=== PATIENT | male | born 1950 | race Caucasian/White ===

== ENCOUNTER 2019-02-24 18:53 | Inpatient (IN) ==
[2019-02-24] MEDS ORDERED: MAGNESIUM SULF RIDER 2 GM in PREMIX 1 EACH IV STA (19:22)
[2019-02-24] MEDS ORDERED: LEVALBUTEROL 1.25 MG/3 ML NEB RESP TX STA (19:22)
[2019-02-24] MEDS ORDERED: FUROSEMIDE 100 MG/10 ML VIAL IV STA (19:22)
[2019-02-24] MEDS ORDERED: MORPHINE 4 MG/1 ML VIAL IV STA (19:22)
[2019-02-24] MEDS ORDERED: cefTRIAXone 1,000 MG in SODIUM CHLORIDE 0.9% 100 ML IV STA (19:22)
[2019-02-24] MEDS ORDERED: DILTIAZEM 50 MG/10 ML VIAL IV STA (19:22)
[2019-02-24] MEDS ORDERED: methylPREDNISolone SOD SUC 125 MG/2 ML VIAL IV STA (19:22)
[2019-02-24] MEDS ORDERED: ASPIRIN 325 MG TABLET PO STA (19:22)
[2019-02-24] MEDS ORDERED: ONDANSETRON 4 MG/2 ML VIAL IV STA (19:22)
[2019-02-24 19:31] LABS: Basophils # 0.1 10*3/uL (0.0-0.2); Basophils % 0.5 % (0.0-0.8); Eosinophils # 0.1 10*3/uL (0.0-0.87); Eosinophils % 0.5 % (0.00-10.9); Hematocrit 44.8 VOL% (42.0-52.0); Hemoglobin 14.1 GM/DL (14.0-18.0); Immature Granulocytes % 0.9 %; Immature Granulocytes Absolute 0.14 #; Lymphocytes # 2.4 10*3/uL (1.4-4.0); Lymphocytes % 14.6 % (21.2-54.2); Mean Corpuscular HGB Conc 31.5 GM/DL (32-36); Mean Platelet Volume 9.9 FL (9.6-12.0); Monocytes % 8.6 % (1.7-12.7); Neutrophils % 74.9 % (38.7-73.9); Platelet Count 483 T/CUMM (130-400); Red Blood Count 5.15 MC/CUMM (3.8-5.5); Red Cell Distribution Width 14.8 % (9.3-17.3); White Blood Count 16.5 T/CUMM (4-12)
[2019-02-24 19:37] LABS: INR 1.1; PT Patient Result 11.4 SECS
[2019-02-24 19:50] LABS: Albumin 3.5 G/DL (3.4-5.0); Bilirubin,Total 0.6 MG/DL (0.2-1.0); CKMB % 4.6 %; Calcium 9.7 MG/DL (8.5-10.1); Osmolality,Calculated 277.8 MOS/KG (273-304); Total Protein 7.4 G/DL (6.4-8.3); Troponin I 0.025 NG/ML (0.00-0.045)
[2019-02-24] MEDS ORDERED: METOPROLOL TARTRATE 5 MG/5 ML VIAL IV ONE (19:58)
[2019-02-24] MEDS ORDERED: METOPROLOL TARTRATE 5 MG/5 ML VIAL IV STA (19:58)
[2019-02-24 20:12] LABS: ABG Base Excess 1.1 MMOL/L (-2.5-2.5); ABG HCO3 25.4 MMOL/L (20-26); ABG Oxygen Saturation 97.8 % (95-100); ABG PCO2 42.9 MM HG (35-48); ABG PH 7.396 (7.35-7.45); ABG TCO2 22.6 MMOL/L (23-27); Allen Test Positive
[2019-02-24] MEDS ORDERED: ENOXAPARIN 100 MG/ML SYRINGE SUBCUT STA (20:53)
[2019-02-24] MEDS ORDERED: ACETAMINOPHEN 325 MG TABLET PO PRN (21:54)
[2019-02-24] MEDS ORDERED: ONDANSETRON 4 MG/2 ML VIAL IV PRN (21:54)
[2019-02-24] MEDS ORDERED: diphenhydrAMINE CAP 25 MG CAPSULE PO PRN (21:54)
[2019-02-24] MEDS ORDERED: guaiFENesin/DM ER 600-30 MG TABLET PO PRN (21:54)
[2019-02-24] MEDS ORDERED: NICOTINE 21 MG/24 HR PATCH TRANSDERM PRN (21:54)
[2019-02-24] MEDS ORDERED: LEVOFLOXACIN INJ 750 MG in PREMIX 1 EACH IV SCH (23:00)
[2019-02-25] MEDS: ALBUTEROL/IPRATROPIUM 3 ML NEB RESP TX SCH ×2 (00:25→08:40)
[2019-02-25 00:48] LABS: Apearance,Urine CLEAR (Clear); Bilirubin,Urine Negative (Negative); Blood, Urine Large mg/dL (Negative); Glucose,Urine (UA) Negative (Negative); Hyaline Casts,Urine 4 /LPF (0-3); Ketones,Urine Negative (Negative); Mucus,Urine Occasional /LPF (Occasional); Nitrite,Urine Negative (Negative); Protein,Urine Negative; RBC,Urine 388 /HPF (0-4); Urine Color Yellow (Yellow); Urine Specific Gravity 1.019 (1.001-1.035); Urine Urobilinogen < 2.0 EU/DL (0.2-1.0); WBC,Urine 4 /HPF (0-6)
[2019-02-25 00:59] LABS: Barbiturates Screen,Urine Negative (Negative); Benzodiazepines Screen,Urine Negative (Negative); Cannabinoid Screen,Urine Negative (Negative); Opiate Screen,Urine Positive (Negative); Phencyclidine Screen,Urine Negative (Negative)
[2019-02-25 01:15] LABS: Basophils % 0.4 % (0.0-0.8); Hematocrit 41.9 VOL% (42.0-52.0); Hemoglobin 13.3 GM/DL (14.0-18.0); Immature Granulocytes % 0.7 %; Immature Granulocytes Absolute 0.08 #; Lymphocytes # 0.7 10*3/uL (1.4-4.0); Lymphocytes % 5.9 % (21.2-54.2); Mean Corpuscular HGB Conc 31.7 GM/DL (32-36); Mean Corpuscular Volume 87.1 FL (87-102); Mean Platelet Volume 9.8 FL (9.6-12.0); Monocytes % 1.1 % (1.7-12.7); Neutrophils % 91.9 % (38.7-73.9); Platelet Count 377 T/CUMM (130-400); Red Blood Count 4.81 MC/CUMM (3.8-5.5); Red Cell Distribution Width 14.6 % (9.3-17.3); White Blood Count 11.4 T/CUMM (4-12)
[2019-02-25] MEDS: PIPERACILLIN/TAZOBACTAM 3,375 MG in SODIUM CHLORIDE 0.9% 100 ML IV SCH ×2 (01:15→09:35)
[2019-02-25] MEDS: LORazepam 2 MG/1 ML VIAL IV PRN ×2 (01:23→21:23)
[2019-02-25 01:45] LABS: Lymphocytes 5 % (20-55); Segmented Neutrophils 95 % (50-85); Total Cells Counted 100
[2019-02-25 01:46] LABS: Anisocytosis 1+; Platelet Estimate Adequate
[2019-02-25 02:02] LABS: Albumin 3.5 G/DL (3.4-5.0); Bilirubin,Total 0.4 MG/DL (0.2-1.0); Calcium 9.5 MG/DL (8.5-10.1); Total Protein 7.2 G/DL (6.4-8.3)
[2019-02-25 04:27] LABS: ABG Base Excess 0.9 MMOL/L (-2.5-2.5); ABG HCO3 25.2 MMOL/L (20-26); ABG Oxygen Saturation 94.5 % (95-100); ABG PCO2 52.1 MM HG (35-48); ABG PH 7.336 (7.35-7.45); ABG PO2 82.2 MM HG (80-95); ABG TCO2 24.4 MMOL/L (23-27); Allen Test Positive; Pt O2 Delivery Device Other
[2019-02-25] MEDS: VANCOMYCIN INJ 1,000 MG in SODIUM CHLORIDE 0.9% 250 ML IV SCH ×2 (06:05→17:47)
[2019-02-25] MEDS ORDERED: FUROSEMIDE 40 MG/4 ML VIAL IV SCH (08:00)
[2019-02-25] MEDS: PANTOPRAZOLE 40 MG TABLET PO SCH (09:10)
[2019-02-25] MEDS: methylPREDNISolone SOD SUC 40 MG/1 ML VIAL IV SCH ×2 (09:35→21:20)
[2019-02-25] MEDS: DORNASE ALFA 2.5 MG/2.5 ML VIAL RESP TX SCH ×2 (11:20→19:12)
[2019-02-25] MEDS: ASPIRIN EC 325 MG TABLET PO SCH (11:45)
[2019-02-25] MEDS: ATORVASTATIN 20 MG TABLET PO SCH (11:45)
[2019-02-25] MEDS: MEROPENEM 1,000 MG in SODIUM CHLORIDE 0.9% 100 ML IV SCH ×2 (11:46→22:35)
[2019-02-25] MEDS: MONTELUKAST 10 MG TABLET PO SCH ×2 (11:46→21:20)
[2019-02-25] MEDS: LEVALBUTEROL 1.25 MG/3 ML NEB RESP TX SCH ×2 (13:09→19:12)
[2019-02-25] MEDS: IPRATROPIUM 500 MCG/2.5 ML NEB RESP TX SCH ×2 (13:10→19:12)
[2019-02-25] MEDS ORDERED: DILTIAZEM CD 120 MG CAPSULE PO ONE (17:01)
[2019-02-26] MEDS: IPRATROPIUM 500 MCG/2.5 ML NEB RESP TX SCH ×4 (01:00→19:54)
[2019-02-26] MEDS: LEVALBUTEROL 1.25 MG/3 ML NEB RESP TX SCH ×4 (01:00→19:54)
[2019-02-26 04:38] LABS: Basophils % 0.1 % (0.0-0.8); Hematocrit 40.9 VOL% (42.0-52.0); Hemoglobin 13.1 GM/DL (14.0-18.0); Immature Granulocytes % 0.8 %; Immature Granulocytes Absolute 0.12 #; Lymphocytes # 0.9 10*3/uL (1.4-4.0); Lymphocytes % 6.1 % (21.2-54.2); Mean Corpuscular Volume 86.7 FL (87-102); Mean Platelet Volume 10.2 FL (9.6-12.0); Platelet Count 407 T/CUMM (130-400); Red Blood Count 4.72 MC/CUMM (3.8-5.5); Red Cell Distribution Width 14.6 % (9.3-17.3); White Blood Count 15.1 T/CUMM (4-12)
[2019-02-26] MEDS: VANCOMYCIN INJ 1,000 MG in SODIUM CHLORIDE 0.9% 250 ML IV SCH (04:55)
[2019-02-26 05:01] LABS: Calcium 9.3 MG/DL (8.5-10.1); Osmolality,Calculated 277.1 MOS/KG (273-304)
[2019-02-26 05:11] LABS: Risk Ratio 2.44; VLDL CHOLESTEROL 25.8 MG/DL
[2019-02-26] MEDS: LORazepam 2 MG/1 ML VIAL IV PRN (06:25)
[2019-02-26] MEDS: DORNASE ALFA 2.5 MG/2.5 ML VIAL RESP TX SCH ×2 (07:30→19:54)
[2019-02-26] MEDS: PANTOPRAZOLE 40 MG TABLET PO SCH (08:31)
[2019-02-26] MEDS: ASCORBIC ACID 500 MG TABLET PO SCH ×2 (08:31→21:24)
[2019-02-26] MEDS: DILTIAZEM CD 120 MG CAPSULE PO SCH (08:31)
[2019-02-26] MEDS: methylPREDNISolone SOD SUC 40 MG/1 ML VIAL IV SCH ×2 (08:31→21:22)
[2019-02-26] MEDS: ATORVASTATIN 20 MG TABLET PO SCH (08:31)
[2019-02-26] MEDS: MONTELUKAST 10 MG TABLET PO SCH ×2 (08:31→21:24)
[2019-02-26] MEDS: ASPIRIN EC 325 MG TABLET PO SCH (08:32)
[2019-02-26] MEDS ORDERED: ENOXAPARIN 30 MG/0.3 ML SYRINGE SUBCUT SCH (09:00)
[2019-02-26] MEDS: ENOXAPARIN 40 MG/0.4 ML SYRINGE SUBCUT SCH (09:08)
[2019-02-26] MEDS: LEVOFLOXACIN 500 MG TABLET PO SCH (09:25)
[2019-02-26] MEDS: MEROPENEM 1,000 MG in SODIUM CHLORIDE 0.9% 100 ML IV SCH ×2 (14:24→22:54)
[2019-02-26] MEDS: MORPHINE 4 MG/1 ML VIAL IV PRN (21:22)
[2019-02-27] MEDS: MORPHINE 4 MG/1 ML VIAL IV PRN ×3 (00:44→21:08)
[2019-02-27] MEDS: IPRATROPIUM 500 MCG/2.5 ML NEB RESP TX SCH ×4 (01:00→19:00)
[2019-02-27] MEDS: LEVALBUTEROL 1.25 MG/3 ML NEB RESP TX SCH ×4 (01:00→19:00)
[2019-02-27 03:55] LABS: Basophils % 0.1 % (0.0-0.8); Hematocrit 43.5 VOL% (42.0-52.0); Hemoglobin 13.6 GM/DL (14.0-18.0); Immature Granulocytes % 0.8 %; Immature Granulocytes Absolute 0.12 #; Lymphocytes # 0.6 10*3/uL (1.4-4.0); Mean Corpuscular HGB Conc 31.3 GM/DL (32-36); Mean Corpuscular Volume 87.9 FL (87-102); Mean Platelet Volume 10.1 FL (9.6-12.0); Monocytes % 3.6 % (1.7-12.7); Neutrophils % 91.5 % (38.7-73.9); Platelet Count 374 T/CUMM (130-400); Red Blood Count 4.95 MC/CUMM (3.8-5.5); Red Cell Distribution Width 14.6 % (9.3-17.3); White Blood Count 14.6 T/CUMM (4-12)
[2019-02-27 04:25] LABS: Lymphocytes 1 % (20-55); Platelet Estimate Normal; Segmented Neutrophils 98 % (50-85); Total Cells Counted 100
[2019-02-27 04:27] LABS: Polychromasia Few
[2019-02-27 04:28] LABS: Calcium 9.5 MG/DL (8.5-10.1); Osmolality,Calculated 287.4 MOS/KG (273-304)
[2019-02-27] MEDS: DORNASE ALFA 2.5 MG/2.5 ML VIAL RESP TX SCH ×2 (07:32→19:32)
[2019-02-27] MEDS: ATORVASTATIN 20 MG TABLET PO SCH (08:46)
[2019-02-27] MEDS: MONTELUKAST 10 MG TABLET PO SCH ×2 (08:46→21:07)
[2019-02-27] MEDS: ENOXAPARIN 40 MG/0.4 ML SYRINGE SUBCUT SCH (08:47)
[2019-02-27] MEDS: methylPREDNISolone SOD SUC 40 MG/1 ML VIAL IV SCH ×2 (08:47→21:07)
[2019-02-27] MEDS: ASCORBIC ACID 500 MG TABLET PO SCH ×2 (08:47→21:07)
[2019-02-27] MEDS: ASPIRIN EC 325 MG TABLET PO SCH (08:47)
[2019-02-27] MEDS: PANTOPRAZOLE 40 MG TABLET PO SCH (08:47)
[2019-02-27] MEDS: LEVOFLOXACIN 500 MG TABLET PO SCH (08:47)
[2019-02-27] MEDS: DILTIAZEM CD 120 MG CAPSULE PO SCH (08:47)
[2019-02-27] MEDS: MEROPENEM 1,000 MG in SODIUM CHLORIDE 0.9% 100 ML IV SCH (10:31)
[2019-02-27] MEDS ORDERED: DILTIAZEM 50 MG/10 ML VIAL IV ONE (10:32)
[2019-02-27] MEDS: METOPROLOL TARTRATE 25 MG TABLET PO SCH ×2 (10:46→21:07)
[2019-02-27] MEDS ORDERED: FLECAINIDE 100 MG TABLET PO ONE (10:50)
[2019-02-27] MEDS: APIXABAN 5 MG TABLET PO SCH ×2 (11:10→21:07)
[2019-02-27] MEDS: dilTIAZem Drip 125 MG/125 ML PREMIX IV SCH (11:27)
[2019-02-27] MEDS: cefTRIAXone 1,000 MG in SYRINGE 1 EACH IV SCH (14:01)
[2019-02-27] MEDS: FLUCONAZOLE 200 MG TABLET PO SCH (14:01)
[2019-02-28] MEDS: LEVALBUTEROL 1.25 MG/3 ML NEB RESP TX SCH ×4 (00:29→19:16)
[2019-02-28] MEDS: IPRATROPIUM 500 MCG/2.5 ML NEB RESP TX SCH ×5 (00:29→19:16)
[2019-02-28 04:56] LABS: Basophils % 0.2 % (0.0-0.8); Hematocrit 43.2 VOL% (42.0-52.0); Hemoglobin 13.9 GM/DL (14.0-18.0); Immature Granulocytes % 0.8 %; Immature Granulocytes Absolute 0.11 #; Lymphocytes # 0.7 10*3/uL (1.4-4.0); Lymphocytes % 5.3 % (21.2-54.2); Mean Corpuscular HGB Conc 32.2 GM/DL (32-36); Mean Corpuscular Volume 87.4 FL (87-102); Mean Platelet Volume 10.8 FL (9.6-12.0); Monocytes % 3.7 % (1.7-12.7); Platelet Count 396 T/CUMM (130-400); Red Blood Count 4.94 MC/CUMM (3.8-5.5); Red Cell Distribution Width 14.8 % (9.3-17.3); White Blood Count 13.3 T/CUMM (4-12)
[2019-02-28 05:04] LABS: Calcium 9.6 MG/DL (8.5-10.1); Osmolality,Calculated 296.1 MOS/KG (273-304)
[2019-02-28] MEDS: DORNASE ALFA 2.5 MG/2.5 ML VIAL RESP TX SCH ×2 (07:25→19:16)
[2019-02-28] MEDS: FLUCONAZOLE 200 MG TABLET PO SCH (08:32)
[2019-02-28] MEDS: DILTIAZEM CD 120 MG CAPSULE PO SCH (08:34)
[2019-02-28] MEDS: ASPIRIN EC 325 MG TABLET PO SCH (08:35)
[2019-02-28] MEDS: MONTELUKAST 10 MG TABLET PO SCH ×2 (08:35→20:32)
[2019-02-28] MEDS: ASCORBIC ACID 500 MG TABLET PO SCH ×2 (08:35→20:32)
[2019-02-28] MEDS: METOPROLOL TARTRATE 25 MG TABLET PO SCH ×2 (08:35→20:32)
[2019-02-28] MEDS: ATORVASTATIN 20 MG TABLET PO SCH (08:35)
[2019-02-28] MEDS: APIXABAN 5 MG TABLET PO SCH ×2 (08:35→20:32)
[2019-02-28] MEDS: PANTOPRAZOLE 40 MG TABLET PO SCH (08:35)
[2019-02-28] MEDS: methylPREDNISolone SOD SUC 40 MG/1 ML VIAL IV SCH ×3 (08:36→20:31)
[2019-02-28] MEDS: FLECAINIDE 50 MG TABLET PO SCH ×2 (08:41→20:32)
[2019-02-28] MEDS: dilTIAZem Drip 125 MG/125 ML PREMIX IV SCH (13:30)
[2019-02-28] MEDS: cefTRIAXone 1,000 MG in SYRINGE 1 EACH IV SCH (13:33)
[2019-02-28] MEDS: THEOPHYLLINE ER (24 HR) 300 MG CAPSULE PO SCH (16:18)
[2019-02-28] MEDS: BUDESONIDE 0.5 MG/2 ML NEB RESP TX SCH (19:16)
[2019-03-01] MEDS: IPRATROPIUM 500 MCG/2.5 ML NEB RESP TX SCH ×6 (00:10→23:43)
[2019-03-01] MEDS: LEVALBUTEROL 1.25 MG/3 ML NEB RESP TX SCH ×5 (00:10→23:43)
[2019-03-01] MEDS: methylPREDNISolone SOD SUC 40 MG/1 ML VIAL IV SCH ×4 (02:02→21:02)
[2019-03-01] MEDS: MORPHINE 4 MG/1 ML VIAL IV PRN (02:45)
[2019-03-01 04:36] LABS: Basophils % 0.1 % (0.0-0.8); Hematocrit 46.7 VOL% (42.0-52.0); Immature Granulocytes % 0.9 %; Immature Granulocytes Absolute 0.12 #; Lymphocytes # 0.6 10*3/uL (1.4-4.0); Lymphocytes % 4.2 % (21.2-54.2); Mean Corpuscular HGB Conc 32.1 GM/DL (32-36); Mean Corpuscular Volume 86.8 FL (87-102); Mean Platelet Volume 10.4 FL (9.6-12.0); Monocytes % 3.4 % (1.7-12.7); Neutrophils % 91.4 % (38.7-73.9); Platelet Count 411 T/CUMM (130-400); Red Blood Count 5.38 MC/CUMM (3.8-5.5); Red Cell Distribution Width 14.8 % (9.3-17.3)
[2019-03-01 04:57] LABS: Calcium 9.7 MG/DL (8.5-10.1); Osmolality,Calculated 297.1 MOS/KG (273-304)
[2019-03-01 05:03] LABS: Total Cells Counted 100
[2019-03-01 05:06] LABS: Band Neutrophils 3 % (0-10); Lymphocytes 2 % (20-55); Platelet Estimate Normal; Segmented Neutrophils 91 % (50-85)
[2019-03-01] MEDS: BUDESONIDE 0.5 MG/2 ML NEB RESP TX SCH ×2 (07:51→19:30)
[2019-03-01] MEDS: DORNASE ALFA 2.5 MG/2.5 ML VIAL RESP TX SCH ×2 (07:51→19:41)
[2019-03-01] MEDS: ATORVASTATIN 20 MG TABLET PO SCH (08:49)
[2019-03-01] MEDS: FLUCONAZOLE 200 MG TABLET PO SCH (08:49)
[2019-03-01] MEDS: FLECAINIDE 50 MG TABLET PO SCH ×2 (08:50→21:01)
[2019-03-01] MEDS: METOPROLOL TARTRATE 25 MG TABLET PO SCH ×2 (08:50→21:01)
[2019-03-01] MEDS: THEOPHYLLINE ER (24 HR) 300 MG CAPSULE PO SCH (08:50)
[2019-03-01] MEDS: PANTOPRAZOLE 40 MG TABLET PO SCH (08:51)
[2019-03-01] MEDS: APIXABAN 5 MG TABLET PO SCH ×2 (08:51→21:01)
[2019-03-01] MEDS: DILTIAZEM CD 120 MG CAPSULE PO SCH (08:51)
[2019-03-01] MEDS: ASCORBIC ACID 500 MG TABLET PO SCH ×2 (08:52→21:01)
[2019-03-01] MEDS: MONTELUKAST 10 MG TABLET PO SCH ×2 (08:52→21:01)
[2019-03-01] MEDS: ASPIRIN EC 325 MG TABLET PO SCH (08:53)
[2019-03-01] MEDS ORDERED: ALBUTEROL 2.5 MG/3 ML NEB RESP TX PRN (10:09)
[2019-03-01] MEDS ORDERED: ALBUTEROL 2.5 MG/3 ML NEB RESP TX SCH (10:13)
[2019-03-01 10:30] LABS: ABG Base Excess 5.2 MMOL/L (-2.5-2.5); ABG Oxygen Saturation 94.2 % (95-100); ABG PCO2 47.7 MM HG (35-48); ABG PH 7.419 (7.35-7.45); ABG PO2 74.6 MM HG (80-95); ABG TCO2 26.3 MMOL/L (23-27)
[2019-03-01] MEDS ORDERED: LEVALBUTEROL 1.25 MG/3 ML NEB RESP TX PRN (10:53)
[2019-03-01] MEDS: dilTIAZem Drip 125 MG/125 ML PREMIX IV SCH (13:10)
[2019-03-01] MEDS: cefTRIAXone 1,000 MG in SYRINGE 1 EACH IV SCH (13:46)
[2019-03-01] MEDS: IPRATROPIUM 500 MCG/2.5 ML NEB RESP TX PRN (17:57)
[2019-03-02] MEDS: IPRATROPIUM 500 MCG/2.5 ML NEB RESP TX PRN (03:30)
[2019-03-02] MEDS: methylPREDNISolone SOD SUC 40 MG/1 ML VIAL IV SCH ×2 (03:49→09:29)
[2019-03-02 04:09] LABS: Basophils # 0.1 10*3/uL (0.0-0.2); Basophils % 0.3 % (0.0-0.8); Hematocrit 46.4 VOL% (42.0-52.0); Hemoglobin 14.7 GM/DL (14.0-18.0); Immature Granulocytes % 0.9 %; Immature Granulocytes Absolute 0.15 #; Lymphocytes # 0.7 10*3/uL (1.4-4.0); Lymphocytes % 3.8 % (21.2-54.2); Mean Corpuscular HGB Conc 31.7 GM/DL (32-36); Mean Corpuscular Volume 87.7 FL (87-102); Mean Platelet Volume 10.1 FL (9.6-12.0); Platelet Count 368 T/CUMM (130-400); Red Blood Count 5.29 MC/CUMM (3.8-5.5); Red Cell Distribution Width 14.7 % (9.3-17.3); White Blood Count 17.6 T/CUMM (4-12)
[2019-03-02 04:35] LABS: Calcium 9.9 MG/DL (8.5-10.1); Osmolality,Calculated 297.1 MOS/KG (273-304)
[2019-03-02 05:01] LABS: Hypochromasia Slight; Lymphocytes 6 % (20-55); Metamyelocytes 1 %; Platelet Estimate Normal; Segmented Neutrophils 92 % (50-85); Total Cells Counted 100
[2019-03-02] MEDS: DORNASE ALFA 2.5 MG/2.5 ML VIAL RESP TX SCH (07:19)
[2019-03-02] MEDS: IPRATROPIUM 500 MCG/2.5 ML NEB RESP TX SCH ×2 (07:19→13:27)
[2019-03-02] MEDS: BUDESONIDE 0.5 MG/2 ML NEB RESP TX SCH (07:19)
[2019-03-02] MEDS: LEVALBUTEROL 1.25 MG/3 ML NEB RESP TX SCH ×2 (07:19→13:27)
[2019-03-02] MEDS: MONTELUKAST 10 MG TABLET PO SCH (09:25)
[2019-03-02] MEDS: ATORVASTATIN 20 MG TABLET PO SCH (09:25)
[2019-03-02] MEDS: METOPROLOL TARTRATE 25 MG TABLET PO SCH (09:26)
[2019-03-02] MEDS: ASPIRIN EC 325 MG TABLET PO SCH (09:26)
[2019-03-02] MEDS: FLUCONAZOLE 200 MG TABLET PO SCH (09:26)
[2019-03-02] MEDS: FLECAINIDE 50 MG TABLET PO SCH (09:26)
[2019-03-02] MEDS: ASCORBIC ACID 500 MG TABLET PO SCH (09:27)
[2019-03-02] MEDS: PANTOPRAZOLE 40 MG TABLET PO SCH (09:27)
[2019-03-02] MEDS: DILTIAZEM CD 120 MG CAPSULE PO SCH (09:27)
[2019-03-02] MEDS: APIXABAN 5 MG TABLET PO SCH (09:28)
[2019-03-02] MEDS: THEOPHYLLINE ER (24 HR) 300 MG CAPSULE PO SCH (09:30)
[2019-03-02 12:21] VITALS: BP 147/77
[2019-03-02] MEDS: dilTIAZem Drip 125 MG/125 ML PREMIX IV SCH (12:38)
[2019-03-02] MEDS ORDERED: ALBUTEROL 0.4 MG/ML 30 ML/BOTTLE PO SCH (14:00)
[2019-03-02] MEDS: cefTRIAXone 1,000 MG in SYRINGE 1 EACH IV SCH (15:38)
== END 2019-03-02 15:41 | disposition home or self-care (01) | DRG 190 ==
LOC: N.ED 18:53 → N.CC 21:54 → SUATTDRO 21:56 → SUPCPDRO 21:56 → N.CC 22:36 → N.TELES 02-26 10:09
PROVIDERS: ADMIT Internal Medicine; ATTEND Hospitalist

== ENCOUNTER 2019-03-28 16:31 | Inpatient (IN) ==
[2019-03-28] MEDS ORDERED: DILTIAZEM 50 MG/10 ML VIAL IV ONE (17:04)
[2019-03-28] MEDS ORDERED: DILTIAZEM 25 MG/5 ML VIAL IV ONE (17:06)
[2019-03-28] MEDS ORDERED: METOPROLOL TARTRATE 5 MG/5 ML VIAL IV ONE ×2 (17:26→17:43)
[2019-03-28] MEDS ORDERED: dilTIAZem Drip 125 MG/125 ML PREMIX IV SCH (17:30)
[2019-03-28] MEDS ORDERED: ONDANSETRON 4 MG/2 ML VIAL IV PRN (17:33)
[2019-03-28] MEDS ORDERED: GLUCAGON 1 MG VIAL IM PRN (17:33)
[2019-03-28] MEDS ORDERED: ACETAMINOPHEN 325 MG TABLET PO PRN (17:33)
[2019-03-28] MEDS ORDERED: DEXTROSE 50% 25 GM/50 ML VIAL IV PRN (17:33)
[2019-03-28] MEDS ORDERED: diphenhydrAMINE CAP 25 MG CAPSULE PO PRN (17:33)
[2019-03-28] MEDS ORDERED: NICOTINE 21 MG/24 HR PATCH TRANSDERM PRN (17:33)
[2019-03-28] MEDS ORDERED: AMIODARONE INJ 150 MG in DEXTROSE 5% 100 ML IV ONE (17:58)
[2019-03-28] MEDS ORDERED: AMIODARONE INJ 450 MG in DEXTROSE 5% 241 ML IV SCH (18:00)
[2019-03-28] MEDS ORDERED: AMIODARONE 450 MG/9 ML VIAL IV ONE (18:03)
[2019-03-28 18:04] LABS: Basophils % 0.3 % (0.0-0.8); Hematocrit 39.4 VOL% (42.0-52.0); Hemoglobin 12.7 GM/DL (14.0-18.0); Immature Granulocytes % 1.8 %; Immature Granulocytes Absolute 0.26 #; Lymphocytes # 0.8 10*3/uL (1.4-4.0); Lymphocytes % 5.8 % (21.2-54.2); Mean Corpuscular HGB Conc 32.2 GM/DL (32-36); Mean Corpuscular Volume 89.5 FL (87-102); Mean Platelet Volume 10.1 FL (9.6-12.0); Monocytes % 2.3 % (1.7-12.7); Neutrophils % 89.8 % (38.7-73.9); Platelet Count 485 T/CUMM (130-400); Red Cell Distribution Width 16.1 % (9.3-17.3); White Blood Count 14.4 T/CUMM (4-12)
[2019-03-28] MEDS ORDERED: AMIODARONE 150 MG/3 ML VIAL ONE (18:04)
[2019-03-28] MEDS: methylPREDNISolone SOD SUC 40 MG/1 ML VIAL IV SCH (18:16)
[2019-03-28] MEDS: PIPERACILLIN/TAZOBACTAM 3,375 MG in SODIUM CHLORIDE 0.9% 100 ML IV SCH (18:42)
[2019-03-28 18:50] LABS: ABG Base Excess 2.7 MMOL/L (-2.5-2.5); ABG HCO3 26.8 MMOL/L (20-26); ABG Oxygen Saturation 98.7 % (95-100); ABG PCO2 62.6 MM HG (35-48); ABG PH 7.305 (7.35-7.45); ABG TCO2 27.4 MMOL/L (23-27); Pt O2 Delivery Device Other
[2019-03-28] MEDS: LEVALBUTEROL 1.25 MG/3 ML NEB RESP TX SCH ×2 (18:50→22:51)
[2019-03-28 19:48] LABS: Bilirubin,Total 0.5 MG/DL (0.2-1.0); Calcium 9.6 MG/DL (8.5-10.1); Osmolality,Calculated 285.7 MOS/KG (273-304); Risk Ratio 1.95; Thyroid Stimulating Hormone 0.346 uIU/ml (0.358-3.74); Total Protein 7.1 G/DL (6.4-8.3); VLDL CHOLESTEROL 24.4 MG/DL
[2019-03-28 20:50] LABS: Apearance,Urine CLEAR (Clear); Bilirubin,Urine Negative (Negative); Blood, Urine Small mg/dL (Negative); Glucose,Urine (UA) Negative (Negative); Hyaline Casts,Urine 20 /LPF (0-3); Ketones,Urine Negative (Negative); Mucus,Urine Occasional /LPF (Occasional); Nitrite,Urine Negative (Negative); Protein,Urine Negative; RBC,Urine 22 /HPF (0-4); Squamous Epithelial Cell,Urine Occasional /HPF (0-10); Urine Color Yellow (Yellow); Urine Specific Gravity 1.014 (1.001-1.035); WBC,Urine 2 /HPF (0-6)
[2019-03-28] MEDS: INSULIN REGULAR 100 UNIT/ML SUBCUT SCH (21:33)
[2019-03-28] MEDS: APIXABAN 5 MG TABLET PO SCH (21:34)
[2019-03-28] MEDS: LEVOFLOXACIN INJ 500 MG in PREMIX 1 EACH IV SCH ×2 (21:34→22:58)
[2019-03-28] MEDS: DILTIAZEM CD 120 MG CAPSULE PO SCH (21:34)
[2019-03-28] MEDS: THEOPHYLLINE ER (24 HR) 300 MG CAPSULE PO SCH (21:34)
[2019-03-28] MEDS: METOPROLOL TARTRATE 25 MG TABLET PO SCH (21:34)
[2019-03-28] MEDS: MORPHINE 4 MG/1 ML VIAL IV PRN (22:59)
[2019-03-29] MEDS: PIPERACILLIN/TAZOBACTAM 3,375 MG in SODIUM CHLORIDE 0.9% 100 ML IV SCH ×3 (02:22→17:15)
[2019-03-29] MEDS: LEVALBUTEROL 1.25 MG/3 ML NEB RESP TX SCH ×6 (02:42→22:32)
[2019-03-29] MEDS: MORPHINE 4 MG/1 ML VIAL IV PRN ×3 (02:51→22:44)
[2019-03-29] MEDS: AMIODARONE INJ 450 MG in DEXTROSE 5% 241 ML IV SCH ×2 (03:18→19:06)
[2019-03-29] MEDS: dilTIAZem Drip 125 MG/125 ML PREMIX IV SCH ×3 (03:31→19:06)
[2019-03-29 04:01] LABS: Allen Test Positive; Pt O2 Delivery Device Other
[2019-03-29 04:03] LABS: ABG Base Excess 1.3 MMOL/L (-2.5-2.5); ABG HCO3 27.3 MMOL/L (20-26); ABG PCO2 48.8 MM HG (35-48); ABG PH 7.365 (7.35-7.45); ABG PO2 209.1 MM HG (80-95); ABG TCO2 28.8 MMOL/L (23-27)
[2019-03-29 06:04] LABS: Basophils % 0.4 % (0.0-0.8); Hematocrit 35.9 VOL% (42.0-52.0); Hemoglobin 11.3 GM/DL (14.0-18.0); Immature Granulocytes % 2.6 %; Immature Granulocytes Absolute 0.28 #; Lymphocytes # 0.6 10*3/uL (1.4-4.0); Lymphocytes % 5.3 % (21.2-54.2); Mean Corpuscular HGB Conc 31.5 GM/DL (32-36); Mean Corpuscular Volume 89.3 FL (87-102); Mean Platelet Volume 9.9 FL (9.6-12.0); Monocytes % 5.7 % (1.7-12.7); Platelet Count 409 T/CUMM (130-400); Red Blood Count 4.02 MC/CUMM (3.8-5.5); White Blood Count 10.9 T/CUMM (4-12)
[2019-03-29 06:36] LABS: Calcium 8.9 MG/DL (8.5-10.1); Osmolality,Calculated 289.7 MOS/KG (273-304)
[2019-03-29] MEDS: methylPREDNISolone SOD SUC 40 MG/1 ML VIAL IV SCH ×2 (06:43→17:14)
[2019-03-29] MEDS: INSULIN REGULAR 100 UNIT/ML SUBCUT SCH ×4 (08:46→22:47)
[2019-03-29] MEDS ORDERED: POTASSIUM CHLORIDE 20 MEQ TABLET PO PRN (09:07)
[2019-03-29] MEDS: METOPROLOL TARTRATE 25 MG TABLET PO SCH ×2 (09:26→21:18)
[2019-03-29] MEDS: THEOPHYLLINE ER (24 HR) 300 MG CAPSULE PO SCH (09:26)
[2019-03-29] MEDS: DILTIAZEM CD 120 MG CAPSULE PO SCH ×2 (09:26→21:18)
[2019-03-29] MEDS: PANTOPRAZOLE 40 MG TABLET PO SCH (09:26)
[2019-03-29] MEDS: APIXABAN 5 MG TABLET PO SCH ×2 (09:26→21:19)
[2019-03-29] MEDS ORDERED: DILTIAZEM CD 120 MG CAPSULE PO SCH (09:30)
[2019-03-29] MEDS: POTASSIUM CHLORIDE 20 MEQ TABLET PO PRN (09:32)
[2019-03-29] MEDS ORDERED: METOPROLOL TARTRATE 5 MG/5 ML VIAL IV ONE (09:37)
[2019-03-29] MEDS: AMIODARONE 200 MG TABLET PO SCH ×2 (10:08→21:18)
[2019-03-29] MEDS: IPRATROPIUM 500 MCG/2.5 ML NEB RESP TX SCH ×4 (10:25→22:32)
[2019-03-29] MEDS: MONTELUKAST 10 MG TABLET PO SCH (12:34)
[2019-03-29] MEDS: LEVOFLOXACIN INJ 500 MG in PREMIX 1 EACH IV SCH (21:19)
[2019-03-30] MEDS: PIPERACILLIN/TAZOBACTAM 3,375 MG in SODIUM CHLORIDE 0.9% 100 ML IV SCH (01:46)
[2019-03-30] MEDS: MORPHINE 4 MG/1 ML VIAL IV PRN ×2 (01:46→23:27)
[2019-03-30] MEDS: IPRATROPIUM 500 MCG/2.5 ML NEB RESP TX SCH ×5 (03:20→20:17)
[2019-03-30] MEDS: LEVALBUTEROL 1.25 MG/3 ML NEB RESP TX SCH ×5 (03:20→20:18)
[2019-03-30] MEDS: dilTIAZem Drip 125 MG/125 ML PREMIX IV SCH (03:23)
[2019-03-30] MEDS: LORazepam 2 MG/1 ML VIAL IV PRN ×2 (04:22→08:32)
[2019-03-30 04:41] LABS: ABG Base Excess -0.2 MMOL/L (-2.5-2.5); ABG HCO3 26.1 MMOL/L (20-26); ABG Oxygen Saturation 98.2 % (95-100); ABG PCO2 49.4 MM HG (35-48); ABG PH 7.341 (7.35-7.45); ABG PO2 133.5 MM HG (80-95); ABG TCO2 27.6 MMOL/L (23-27)
[2019-03-30 05:46] LABS: Basophils # 0.1 10*3/uL (0.0-0.2); Basophils % 0.3 % (0.0-0.8); Hematocrit 36.1 VOL% (42.0-52.0); Hemoglobin 11.8 GM/DL (14.0-18.0); Immature Granulocytes % 3.1 %; Immature Granulocytes Absolute 0.69 #; Lymphocytes # 0.9 10*3/uL (1.4-4.0); Lymphocytes % 4.1 % (21.2-54.2); Mean Corpuscular HGB Conc 32.7 GM/DL (32-36); Mean Corpuscular Volume 88.5 FL (87-102); Mean Platelet Volume 10.7 FL (9.6-12.0); Neutrophils % 85.5 % (38.7-73.9); Platelet Count 474 T/CUMM (130-400); Red Blood Count 4.08 MC/CUMM (3.8-5.5); Red Cell Distribution Width 15.6 % (9.3-17.3); White Blood Count 22.6 T/CUMM (4-12)
[2019-03-30 06:02] LABS: Calcium 8.7 MG/DL (8.5-10.1); Osmolality,Calculated 290.1 MOS/KG (273-304)
[2019-03-30 06:07] LABS: Burr Cells Slight; Hypochromasia Slight; Lymphocytes 4 % (20-55); Platelet Estimate Adequate; Segmented Neutrophils 86 % (50-85); Total Cells Counted 100
[2019-03-30] MEDS: POTASSIUM CHLORIDE 20 MEQ TABLET PO PRN (06:39)
[2019-03-30] MEDS: methylPREDNISolone SOD SUC 40 MG/1 ML VIAL IV SCH ×2 (06:39→17:15)
[2019-03-30] MEDS: INSULIN REGULAR 100 UNIT/ML SUBCUT SCH ×4 (08:41→20:39)
[2019-03-30] MEDS ORDERED: POTASSIUM CHLORIDE 20 MEQ TABLET PO SCH (09:00)
[2019-03-30] MEDS: DILTIAZEM CD 120 MG CAPSULE PO SCH ×3 (09:44→20:36)
[2019-03-30] MEDS: APIXABAN 5 MG TABLET PO SCH ×2 (09:45→20:38)
[2019-03-30] MEDS: MAGNESIUM OXIDE 400 MG TABLET PO SCH (09:45)
[2019-03-30] MEDS: THEOPHYLLINE ER (24 HR) 300 MG CAPSULE PO SCH (09:45)
[2019-03-30] MEDS: AMIODARONE 200 MG TABLET PO SCH ×2 (09:45→20:39)
[2019-03-30] MEDS: MONTELUKAST 10 MG TABLET PO SCH (09:45)
[2019-03-30] MEDS: DOXYCYCLINE HYCLATE INJ 100 MG in SODIUM CHLORIDE 0.9% 100 ML IV SCH ×2 (09:45→20:35)
[2019-03-30] MEDS: PANTOPRAZOLE 40 MG TABLET PO SCH (09:45)
[2019-03-30] MEDS: ATORVASTATIN 20 MG TABLET PO SCH (09:45)
[2019-03-30] MEDS: METOPROLOL TARTRATE 25 MG TABLET PO SCH ×4 (09:47→20:41)
[2019-03-30] MEDS ORDERED: INSULIN GLARGINE 100 UNIT/ML SUBCUT SCH (17:00)
[2019-03-30] MEDS: POTASSIUM CHLORIDE 20 MEQ TABLET PO SCH (20:39)
[2019-03-31] MEDS: LEVALBUTEROL 1.25 MG/3 ML NEB RESP TX SCH ×5 (00:52→15:45)
[2019-03-31] MEDS: IPRATROPIUM 500 MCG/2.5 ML NEB RESP TX SCH ×5 (00:52→15:45)
[2019-03-31 04:15] LABS: ABG Base Excess 3.5 MMOL/L (-2.5-2.5); ABG HCO3 27.6 MMOL/L (20-26); ABG Oxygen Saturation 99.2 % (95-100); ABG PCO2 60.3 MM HG (35-48); ABG PH 7.324 (7.35-7.45); ABG TCO2 27.9 MMOL/L (23-27); Allen Test Positive; Pt O2 Delivery Device Other
[2019-03-31 05:20] LABS: Basophils # 0.1 10*3/uL (0.0-0.2); Basophils % 0.4 % (0.0-0.8); Hematocrit 39.2 VOL% (42.0-52.0); Hemoglobin 12.3 GM/DL (14.0-18.0); Immature Granulocytes % 1.6 %; Immature Granulocytes Absolute 0.37 #; Lymphocytes # 0.6 10*3/uL (1.4-4.0); Lymphocytes % 2.5 % (21.2-54.2); Mean Corpuscular HGB Conc 31.4 GM/DL (32-36); Mean Corpuscular Volume 89.3 FL (87-102); Mean Platelet Volume 10.5 FL (9.6-12.0); Monocytes % 5.4 % (1.7-12.7); Neutrophils % 90.1 % (38.7-73.9); Platelet Count 451 T/CUMM (130-400); Red Blood Count 4.39 MC/CUMM (3.8-5.5); Red Cell Distribution Width 15.5 % (9.3-17.3); White Blood Count 23.7 T/CUMM (4-12)
[2019-03-31 05:44] LABS: Osmolality,Calculated 290.8 MOS/KG (273-304)
[2019-03-31 05:46] LABS: Hypochromasia Slight; Lymphocytes 1 % (20-55); Platelet Estimate Normal; Segmented Neutrophils 96 % (50-85); Total Cells Counted 100
[2019-03-31] MEDS: methylPREDNISolone SOD SUC 40 MG/1 ML VIAL IV SCH (05:52)
[2019-03-31] MEDS: THEOPHYLLINE ER (24 HR) 300 MG CAPSULE PO SCH (08:45)
[2019-03-31] MEDS: INSULIN REGULAR 100 UNIT/ML SUBCUT SCH ×2 (08:45→12:43)
[2019-03-31] MEDS: MONTELUKAST 10 MG TABLET PO SCH (08:45)
[2019-03-31] MEDS: POTASSIUM CHLORIDE 20 MEQ TABLET PO SCH (08:46)
[2019-03-31] MEDS: DILTIAZEM CD 120 MG CAPSULE PO SCH (08:46)
[2019-03-31] MEDS: METOPROLOL TARTRATE 25 MG TABLET PO SCH (08:46)
[2019-03-31] MEDS: MAGNESIUM OXIDE 400 MG TABLET PO SCH (08:46)
[2019-03-31] MEDS: APIXABAN 5 MG TABLET PO SCH (08:46)
[2019-03-31] MEDS: PANTOPRAZOLE 40 MG TABLET PO SCH (08:46)
[2019-03-31] MEDS: AMIODARONE 200 MG TABLET PO SCH (08:47)
[2019-03-31] MEDS: ATORVASTATIN 20 MG TABLET PO SCH (08:48)
[2019-03-31] MEDS ORDERED: DORNASE ALFA 2.5 MG/2.5 ML VIAL RESP TX SCH (09:30)
[2019-03-31] MEDS: DOXYCYCLINE HYCLATE INJ 100 MG in SODIUM CHLORIDE 0.9% 100 ML IV SCH (10:35)
[2019-03-31] MEDS ORDERED: MORPHINE 4 MG/1 ML VIAL IV PRN ×2 (15:24→16:15)
[2019-03-31] MEDS ORDERED: LORazepam 2 MG/1 ML VIAL IV PRN (15:25)
[2019-03-31] MEDS ORDERED: MORPHINE 4 MG/1 ML VIAL IV ONE (16:00)
[2019-03-31] MEDS: MORPHINE 4 MG/1 ML VIAL IV PRN ×2 (21:47→22:43)
[2019-04-01] MEDS: MORPHINE 4 MG/1 ML VIAL IV PRN ×3 (01:54→06:02)
[2019-04-01 13:50] VITALS: BP 117/84
== END 2019-04-01 16:05 | disposition expired | DRG 308 ==
LOC: N.ICUOUT 16:31 → SUATTDRO 16:31 → N.ICU 16:31 → SUATTDRO 03-29 10:22 → N.ICU 03-29 10:22 → EDSTATUS 03-30 14:16 → N.3E 03-31 22:22
PROVIDERS: ADMIT Internal Medicine; ATTEND Internal Medicine